=== PATIENT | female | born 1970 | race Caucasian/White ===

== ENCOUNTER 2019-02-25 16:30 | Emergency (ER) | payer OTHER ==
[~2019-02-25] VITALS: Ht 165.1 cm; Wt 86.2 kg
[2019-02-25 16:37] VITALS: BP_SYST 201
--- NOTE | 2019-02-25 16:45 | NUR ---
Patient to ER bed 5 to gown for evaluation. Side rails up. Report given to Anita THOMPSON.
--- NOTE | 2019-02-25 16:55 | NUR ---
Pt AAOx4 ambulated into ED c/o 08/24 mid chest pain and hypertension ~ 2 months with increasing symptoms for past week. Pt was on lopressor which she says did not help her condition. BP when placed in room was 196/124. Skin pink dry and warm, breathing even and unlabored. No other injuries/complaints per pt/noted. Will continue to monitor.
[2019-02-25] MEDS ORDERED: METOPROLOL TARTRATE 5 MG/5 ML VIAL IVP ONE (17:00)
[2019-02-25] MEDS ORDERED: ASPIRIN 81 MG TAB.CHEW PO ONE (17:00)
--- NOTE | 2019-02-25 17:03 | NUR ---
ER Dr. Giron at bedside examining patient.
[2019-02-25 17:09] LABS: BASOPHILS # (AUTO) 0.1 K/uL (0.0-0.2); BASOPHILS % (AUTO) 0.7 % (0.0-2.0); EOSINOPHILS # (AUTO) 0.1 K/uL (0.0-0.4); EOSINOPHILS % (AUTO) 1.3 % (0.0-4.0); HEMATOCRIT 42.5 % (36-48); HEMOGLOBIN 14.6 g/dL (12.0-16.0); LYMPHOCYTES # (AUTO) 1.6 K/uL (1.0-5.5); LYMPHOCYTES % (AUTO) 16.4 % (20.5-51.5); MEAN CORPUSCULAR HEMOGLOBIN 32 pg (27-31); MEAN CORPUSCULAR HGB CONC 34 % (32-36); MEAN CORPUSCULAR VOLUME 92 fL (79.0-98.0); MONOCYTES # (AUTO) 0.8 K/uL (0.0-1.0); MONOCYTES % (AUTO) 8.6 % (1.7-9.3); NEUTROPHILS # (AUTO) 7.2 K/uL (1.8-7.7); PLATELET COUNT (AUTO) 285 K/uL (130-430); RED BLOOD CELL COUNT(AUTO) 4.64 MIL/uL (4.2-6.2); WHITE BLOOD COUNT (AUTO) 9.9 K/uL (4.8-10.8)
[2019-02-25 17:20] LABS: CALCIUM 8.8 mg/dL (8.4-11.0); CREATININE 1.09 mg/dL (0.55-1.30); POTASSIUM 3.7 mmol/L (3.5-5.1)
[2019-02-25 17:26] LABS: ALBUMIN 3.5 g/dL (3.4-4.8); TOTAL BILIRUBIN 0.2 mg/dL (0.0-1.0)
[2019-02-25 18:04] VITALS: BP_SYST 191
--- NOTE | 2019-02-25 18:04 | NUR ---
Patient given written and verbal discharge instructions and verbalizes understanding. ER MD Giron discussed with patient the results and treatment provided. Patient in stable condition. ID arm band removed. IV catheter removed intact and dressing applied, no active bleeding. Rx of lisinopril 20mg given. Patient educated on pain management and to follow up with PMD. Pain Scale 0/10. Opportunity for questions provided and answered. Medication side effect fact sheet provided.
== END 2019-02-25 18:04 | disposition home or self-care (01) ==
LOC: SED 16:30
DX: I10 Essential (primary) hypertension (principal); J45.909 Unspecified asthma, uncomplicated
CPT/HCPCS: 36415; 80053; 84484; 85025; 93005; 96374; 99284; J3490

== ENCOUNTER 2019-04-15 18:17 | Emergency (ER) | payer MEDICAID, OTHER ==
[~2019-04-15] VITALS: Ht 167.6 cm; Wt 83.9 kg
[2019-04-15 18:20] VITALS: BP_SYST 126
--- NOTE | 2019-04-15 18:27 | NUR ---
Patient triaged and placed in waiting room. VSS and patient appears in no acute distress at this time. Accompanied by , awaiting available bed, and MD notified of need for MSE.
--- NOTE | 2019-04-15 18:34 | NUR ---
6Patient to ER bed 03 to gown for evaluation. Side rails up. Report given to DONNA Omer
--- NOTE | 2019-04-15 18:40 | NUR ---
Patient AAOx4 c/o chest pain radiating to the back that has been worsening for 2 weeks. Patient denies any SOB. Patient reports PMH of depression, ADHD, and hernia repair surgery. Respirations even and unlabored, skin warm/pink/dry. No signs or symptoms of acute distress noted.
--- NOTE | 2019-04-15 18:44 | NUR ---
ER Dr. Wolf at bedside examining patient.
[2019-04-15 19:07] LABS: BASOPHILS # (AUTO) 0.1 K/uL (0.0-0.2); BASOPHILS % (AUTO) 0.4 % (0.0-2.0); EOSINOPHILS # (AUTO) 0.1 K/uL (0.0-0.4); EOSINOPHILS % (AUTO) 1.1 % (0.0-4.0); HEMATOCRIT 44.2 % (36-48); LYMPHOCYTES # (AUTO) 2.4 K/uL (1.0-5.5); LYMPHOCYTES % (AUTO) 20.9 % (20.5-51.5); MEAN CORPUSCULAR HEMOGLOBIN 31 pg (27-31); MEAN CORPUSCULAR HGB CONC 34 % (32-36); MEAN CORPUSCULAR VOLUME 92 fL (79.0-98.0); MONOCYTES % (AUTO) 8.5 % (1.7-9.3); NEUTROPHILS % (AUTO) 69.1 % (40.0-70.0); PLATELET COUNT (AUTO) 293 K/uL (130-430); RED BLOOD CELL COUNT(AUTO) 4.81 MIL/uL (4.2-6.2); RED CELL DISTRIBUTION WIDTH 12.9 % (9.0-15.0); WHITE BLOOD COUNT (AUTO) 11.6 K/uL (4.8-10.8)
--- NOTE | 2019-04-15 19:11 | NUR ---
Endorsement Endorsed bedside report to oncoming RN using SBAR approach for continuation of care.
[2019-04-15 19:23] LABS: CREATININE 0.98 mg/dL (0.55-1.30); POTASSIUM 3.8 mmol/L (3.5-5.1)
[2019-04-15 19:29] LABS: ALBUMIN 3.8 g/dL (3.4-4.8); TOTAL BILIRUBIN 0.2 mg/dL (0.0-1.0)
--- NOTE | 2019-04-15 19:50 | NUR ---
ER Dr. Rice at bedside examining patient.
[2019-04-15 20:26] LABS: FREE T4 (FREE THYROXINE) 0.8 ng/dl (0.8-1.5); THYROID STIMULATING HORMONE 2.39 uIu/mL (0.36-3.74)
[2019-04-15 20:57] VITALS: BP_SYST 126
--- NOTE | 2019-04-15 20:57 | NUR ---
Patient given written and verbal discharge instructions and verbalizes understanding. ER MD discussed with patient the results and treatment provided. Patient in stable condition. ID arm band removed. IV catheter removed intact and dressing applied, no active bleeding. No Rx given. Patient educated on pain management and to follow up with PMD. Pain Scale 0. Opportunity for questions provided and answered. Medication side effect fact sheet provided.
== END 2019-04-15 20:57 | disposition home or self-care (01) ==
LOC: SED 18:17
DX: Z88.0 Allergy status to penicillin (principal); I10 Essential (primary) hypertension; J45.909 Unspecified asthma, uncomplicated; F32.9 Major depressive disorder, single episode, unspecified; F41.9 Anxiety disorder, unspecified; R07.89 Other chest pain
CPT/HCPCS: 36415; 71045; 80053; 82550-TC; 84439; 84443-TC; 84479; 84484; 85025; 93005; 99284

== ENCOUNTER 2022-05-19 14:51 | Inpatient (IN) | payer MEDICAID ==
[~2022-05-19] VITALS: Ht 165.1 cm; Wt 86.9 kg
[2022-05-19 14:51] VITALS: BP_SYST 117
[~2022-05-19 14:51] MED LIST: DEXAMETHASONE SOD PHOSPHATE 4 MG/ML VIAL ONE; HYDROmorphone 2 MG/ML VIAL ONE; KETOROLAC TROMETHAMINE 30 MG VIAL ONE; LR 1,000 ML IV.SOLN IV ONE; NS 1000 ML IV.SOLN IV ONE; NS IRRIG SOLN 1000 ML IR ONE; ONDANSETRON HCL 4 MG/2 ML VIAL ONE; PIGGYBACK IV ONE; POTASSIUM CHLORIDE IV ONE; PROPOFOL 200MG/ 20ML VIAL (DIPRIVAN) IV ONE; ROCURONIUM BROMIDE 10 MG/ML (ZEMURON) ONE; SEVOFLURANE 15 MIN GAS INH ONE; SUCCINYLCHOLINE CHLORIDE 20 MG/ML(QUELICIN) ONE; SUGAMMADEX SODIUM 200 MG/2 ML VIAL IV ONE; fentaNYL CITRATE 250 MCG/5 ML AMP ONE
--- NOTE | 2022-05-19 15:00 | NUR ---
Patient triaged and placed in waiting room. VSS and patient appears in no acute distress at this time. Accompanied by SELF, awaiting available bed, and MD notified of need for MSE.
[2022-05-19 15:34] LABS: BILIRUBIN,URINE NEGATIVE (NEGATIVE); BLOOD, URINE NEGATIVE (NEGATIVE); CLARITY/URINE SLIGHTLY HAZY (CLEAR); COLOR,URINE YELLOW (YELLOW); GLUCOSE,URINE NEGATIVE (NEGATIVE); KETONES,URINE NEGATIVE (NEGATIVE); LEUKOCYTE ESTERASE ,URINE TRACE (NEGATIVE); NITRITE, URINE NEGATIVE (NEGATIVE); PROTEIN URINE TRACE (NEGATIVE)
[2022-05-19 15:44] LABS: BASOPHILS # (AUTO) 0.1 K/uL (0.0-0.2); BASOPHILS % (AUTO) 0.5 % (0.0-2.0); EOSINOPHILS # (AUTO) 0.2 K/uL (0.0-0.4); EOSINOPHILS % (AUTO) 1.6 % (0.0-4.0); HEMATOCRIT 43.2 % (36-48); HEMOGLOBIN 14.8 g/dL (12.0-16.0); LYMPHOCYTES # (AUTO) 2.4 K/uL (1.0-5.5); LYMPHOCYTES % (AUTO) 18.4 % (20.5-51.5); MEAN CORPUSCULAR HEMOGLOBIN 31 pg (27-31); MEAN CORPUSCULAR HGB CONC 34 % (32-36); MEAN CORPUSCULAR VOLUME 90 fL (79.0-98.0); MONOCYTES # (AUTO) 1.3 K/uL (0.0-1.0); NEUTROPHILS # (AUTO) 9.1 K/uL (1.8-7.7); NEUTROPHILS % (AUTO) 69.5 % (40.0-70.0); PLATELET COUNT (AUTO) 247 K/uL (130-430); RED BLOOD CELL COUNT(AUTO) 4.81 MIL/uL (4.2-6.2); RED CELL DISTRIBUTION WIDTH 13.5 % (9.0-15.0); WHITE BLOOD COUNT (AUTO) 13.1 K/uL (4.8-10.8)
[2022-05-19 15:52] LABS: ANION GAP 12 (5-15); CALCIUM 8.7 mg/dL (8.4-11.0); CHLORIDE 100 mmol/L (98-107); CREATININE 1.09 mg/dL (0.55-1.30); GLUCOSE 108 mg/dL (70-99); UREA NITROGEN, BLOOD 22 mg/dL (8-21)
[2022-05-19 15:55] LABS: ACETONE, SERUM NEGATIVE (NEGATIVE); GFR AFRICAN AMERICAN 69 mL/min (>90)
[2022-05-19 15:56] LABS: ALANINE AMINOTRANSFERASE 19 U/L (12-78); ALBUMIN 3.5 g/dL (3.4-4.8); AMYLASE 57 U/L (0-100); ASPARTATE AMINOTRANSFERASE 19 U/L (10-37); C-REACTIVE PROTEIN QUANT 9.4 mg/dL (0-0.5); LIPASE 191 U/L (73-393); TOTAL BILIRUBIN 0.4 mg/dL (0.0-1.0)
[2022-05-19] MEDS ORDERED: metroNIDAZOLE 500 mg/NS 100 ML IV ONE (16:00)
[2022-05-19] MEDS ORDERED: ONDANSETRON HCL 4 MG/2 ML VIAL IVP ONE (16:00)
[2022-05-19] MEDS ORDERED: MORPHINE 4 MG INJ. 4 MG/ML VIAL IVP ONE (16:00)
[2022-05-19] MEDS ORDERED: NACL 0.9% 1,000 ML IV ONE (16:00)
--- NOTE | 2022-05-19 16:00 | NUR ---
PT REFUSED IV ACCESS PERIPHERAL LINE. URINE AND LABS OBTAINED.
--- NOTE | 2022-05-19 16:14 | NUR ---
NOTIFIED ED ADMITTING, [facility], REGARDING DR. BUCIO'S REQUEST FOR ADMISSION. PER DR. BUCIO, PT IS NOT STABLE FOR TRANSFER. WILL CONTACT [employer]PER[employer] REGARDING THIS MATTER. PER FACESHEET: [facility]
[2022-05-19 16:29] LABS: BACTERIA,URINE MODERATE /HPF (None Seen); RBC,URINE 0-3 /HPF (0-3)
[2022-05-19] MEDS ORDERED: MORPHINE 2 MG/ML INJ. SYRINGE IVP PRN ×3 (16:30→18:15)
[2022-05-19] MEDS ORDERED: NACL 0.9% 1,000 ML IV SCH (16:30)
--- NOTE | 2022-05-19 16:45 | NUR ---
# 18 gauge angiocath placed to RIJ VIA U/S PERFORMED BY DR. BUCIO. Use of asceptic technique. Opsite placed over site. Blood return noted. Flushed with 10 cc of normal saline. No evidence of infiltration noted. Patient tolerated well.
--- NOTE | 2022-05-19 17:06 | NUR ---
DR. MEYER AT BEDSIDE TO ASSESS PT. PT HAS EATEN RECENTLY, PT WILL HAVE SURGERY IN THE MORNING. PT AGREED WITH POC.
--- NOTE | 2022-05-19 17:08 | NUR ---
MORPHINE 4MG IVP GIVEN, ZOFRAN IVP GIVEN. SCHEDULED ABT GIVEN ORDERED.
--- NOTE | 2022-05-19 17:18 | NUR ---
GIVING UPDATE ON PT STATUS. CALL TRANSFERRED TO DONNA RUTHERFORD FOR FURTHER CLINICAL INFO SPOKE TO SUZANNE FARMER COMPLAINT INVESTIGATOR
--- NOTE | 2022-05-19 17:52 | NUR ---
Admit bed requested Patient will be admitted to care of . Admitted to MEDICAL SURGICAL unit. Diagnosis ACUTE APPENDICITIS Inpatient (Yes or No) YES Observation (Yes or No) NO Orientation concerns or request close to nursing station (Yes or No) NO Covid Status PENDING On vent or bipap NO Isolation requirements PENDING Needs a sitter NO From Home (Yes or if No enter name of facility) YES Requires Dialysis (Yes or No) NO Med Rec Completed (Yes of No) PENDING
[2022-05-19] MEDS: KCL 20 mEq in D5/0.45NS 1000mL 1,000 ML IV SCH (17:56)
--- NOTE | 2022-05-19 17:57 | NUR ---
COVID/MRSA OBTAINED AND TAKEN TO LAB. D5 I/2 NS KCL 20 MEQ IVF INITIATED AT 100ML/HOUR.
[2022-05-19] MEDS ORDERED: LORazepam 2 MG/ML VIAL IVP PRN (18:15)
[2022-05-19] MEDS ORDERED: NALOXONE HCL 0.4 MG/ML AMP (NARCAN) IVP PRN ×3 (18:15→18:22)
[2022-05-19] MEDS ORDERED: POTASSIUM CHLORIDE 20 MEQ TAB.PRT.SR PO PRN (18:15)
[2022-05-19] MEDS ORDERED: MUPIROCIN 2% TOPICAL OINTMENT 22 GM NS PRN (18:15)
[2022-05-19] MEDS ORDERED: ZOLPIDEM TARTRATE 5 MG TABLET PO PRN (18:15)
[2022-05-19] MEDS ORDERED: DOCUSATE SODIUM 100 MG CAPSULE PO PRN (18:15)
[2022-05-19] MEDS ORDERED: MAGNESIUM SULFATE 50 ML IV PRN (18:15)
[2022-05-19] MEDS ORDERED: ONDANSETRON HCL 4 MG/2 ML VIAL IVP PRN (18:15)
[2022-05-19] MEDS ORDERED: ACETAMINOPHEN 325 MG TABLET PO PRN ×2 (18:15→18:30)
--- NOTE | 2022-05-19 19:11 | NUR ---
ENDORSED PT TO DONNA SMITH. ALL QUESTIONS AND CONCERNS ADDRESSED.
[2022-05-19] MEDS ORDERED: CLON0.1T PO ×2 (20:02)
[2022-05-19] MEDS ORDERED: PARO-41 PO (20:02)
[2022-05-19] MEDS ORDERED: HYG25 PO (20:02)
[2022-05-19] MEDS ORDERED: OMEP-268 PO (20:02)
[2022-05-19] MEDS ORDERED: ALBMDI INH (20:02)
--- NOTE | 2022-05-19 20:04 | NUR ---
Pt assessed, GCS 15. No complaints of pain at this time. Med Reconciliation completed & updated.
--- NOTE | 2022-05-19 20:43 | NUR ---
Patient will be admitted to care of Dr. Reggie DO. Admitted to MedSurg unit. Will go to room 116B. Belongings list completed. Complete and up to date summary report printed. SBAR report given to Josef Anand RN at bedside with opportunity for questions.
[2022-05-19 21:06] VITALS: BP_SYST 133
--- NOTE | 2022-05-19 21:20 | NUR ---
Pt admitted to med surg. pt is aox4 able to make needs known. rr even and unlabored on ra. pt able to answer all questions during admission. pt ambulatory. pt educated to use call light if she needs assistance. bed rails upx2. will give Devora rn report on pt
[2022-05-19] MEDS: metroNIDAZOLE 500 mg/NS 100 ML IV SCH (23:18)
[2022-05-20] VITALS (8 sets, daily range): BP systolic 129–150
[2022-05-20] MEDS: KCL 20 mEq in D5/0.45NS 1000mL 1,000 ML IV SCH ×2 (04:12→16:08)
[2022-05-20 06:48] LABS: BASOPHILS % (AUTO) 0.4 % (0.0-2.0); EOSINOPHILS # (AUTO) 0.1 K/uL (0.0-0.4); EOSINOPHILS % (AUTO) 1.2 % (0.0-4.0); HEMOGLOBIN 14.6 g/dL (12.0-16.0); LYMPHOCYTES # (AUTO) 1.2 K/uL (1.0-5.5); LYMPHOCYTES % (AUTO) 14.6 % (20.5-51.5); MEAN CORPUSCULAR HEMOGLOBIN 30 pg (27-31); MEAN CORPUSCULAR HGB CONC 35 % (32-36); MEAN CORPUSCULAR VOLUME 88 fL (79.0-98.0); MONOCYTES # (AUTO) 0.8 K/uL (0.0-1.0); MONOCYTES % (AUTO) 10.4 % (1.7-9.3); NEUTROPHILS # (AUTO) 5.8 K/uL (1.8-7.7); NEUTROPHILS % (AUTO) 73.4 % (40.0-70.0); PLATELET COUNT (AUTO) 201 K/uL (130-430); RED CELL DISTRIBUTION WIDTH 13.3 % (9.0-15.0); WHITE BLOOD COUNT (AUTO) 7.9 K/uL (4.8-10.8)
[2022-05-20] MEDS: metroNIDAZOLE 500 mg/NS 100 ML IV SCH (06:51)
[2022-05-20 07:04] LABS: CALCIUM 8.7 mg/dL (8.4-11.0); CREATININE 0.83 mg/dL (0.55-1.30)
--- NOTE | 2022-05-20 07:20 | NUR ---
Received report from AM nurse about patient going to OR for LAP APPY. OR came and took patient to OR. Patient's alert and oriented and in no acute distress.
[2022-05-20 08:08] LABS: PROTHROMBIN TIME 10.5 SECS (9.5-12.5)
[2022-05-20] MEDS ORDERED: SUCCINYLCHOLINE CHLORIDE 20 MG/ML(QUELICIN) ONE (08:15)
[2022-05-20] MEDS ORDERED: LR 1,000 ML IV.SOLN IV ONE (08:15)
[2022-05-20] MEDS ORDERED: KETOROLAC TROMETHAMINE 30 MG VIAL ONE (08:15)
[2022-05-20] MEDS ORDERED: ONDANSETRON HCL 4 MG/2 ML VIAL ONE (08:15)
[2022-05-20] MEDS ORDERED: DEXAMETHASONE SOD PHOSPHATE 4 MG/ML VIAL ONE (08:15)
[2022-05-20] MEDS ORDERED: NS IRRIG SOLN 1000 ML IR ONE (08:15)
[2022-05-20] MEDS ORDERED: ROCURONIUM BROMIDE 10 MG/ML (ZEMURON) ONE (08:15)
[2022-05-20] MEDS ORDERED: PROPOFOL 200MG/ 20ML VIAL (DIPRIVAN) IV ONE (08:15)
[2022-05-20] MEDS ORDERED: fentaNYL CITRATE/PF 100 MCG/2 ML AMP ONE (08:15)
[2022-05-20] MEDS ORDERED: NS 1000 ML IV.SOLN IV ONE (08:15)
[2022-05-20] MEDS ORDERED: SUGAMMADEX SODIUM 200 MG/2 ML VIAL IV ONE (08:15)
[2022-05-20] MEDS ORDERED: HYDROmorphone 2 MG/ML VIAL ONE (08:15)
[2022-05-20] MEDS ORDERED: SEVOFLURANE 15 MIN GAS INH ONE (08:15)
[2022-05-20] MEDS ORDERED: HYDR-3917 PO (08:33)
[2022-05-20] MEDS ORDERED: BUPIVACAINE LIPOSOME/PF 266 MG/20 ML VIAL INFIL ONE (09:20)
[2022-05-20] MEDS ORDERED: NALOXONE HCL 0.4 MG/ML AMP (NARCAN) IVP PRN ×2 (09:45)
[2022-05-20] MEDS ORDERED: ONDANSETRON HCL 4 MG/2 ML VIAL IVP PRN (09:45)
[2022-05-20] MEDS ORDERED: HYDROmorphone 2 MG/ML VIAL IVP PRN (09:45)
[2022-05-20] MEDS ORDERED: HYDROmorphone 1 MG/ML INJ. CARTRIDGE IVP PRN (09:45)
[2022-05-20] MEDS ORDERED: KCL 20 mEq in 100 mL (PREMIX) 100 ML IV ONE ×3 (09:45)
[2022-05-20] MEDS: HYDROmorphone 1 MG/ML INJ. CARTRIDGE IVP PRN ×2 (10:40→10:50)
[2022-05-20] MEDS ORDERED: HYDROmorphone 1 MG/ML INJ. CARTRIDGE ONE (10:53)
--- NOTE | 2022-05-20 11:40 | NUR ---
Patient came back from OR, alert and oriented x4, IV site on RIJ, with no s/s of infection, patent, running LR. Patient has no c/o pain or discomfort at the incision sites. c/o pain on the R neck where IV site, as per patient it started hurting and burning when manager r d hung the IV Potassium. industrial therapist removed Potassium IV without finishing the whole bag. Offered to start a new IV site but patient refused. IV site on RIJ has no redness, swelling, or drainage and no pain when there's no movement as per patient. Made patient comfortable. VS obtained as per protocol. Placed call light within patient's reach.
--- NOTE | 2022-05-20 12:00 | NUR ---
Three lap sites on abdomen w/ Dermabond, dry and intact. No s/s of infection noted. Patient denies pain on the lap sites.
--- NOTE | 2022-05-20 14:30 | NUR ---
IV machine kept on beeping, checked RIJ IV access and tried to flush it but there's a resistance. Fluid was not going through. Instructed patient that we have to try to place another IV access because there were two IV antibiotics that need to be given plus there's continuous IVF. Patient stated, "I'm a hard stick, my vein rolls and it's not straight and I don't want to be a pin cushion." Reassured patient that we would try our best to get an IV access but patient said, "OK later". Patient's a/o x4 with no c/o pain or discomfort and in no acute distress.
[2022-05-20] MEDS ORDERED: metroNIDAZOLE 500 MG TABLET PO SCH (22:00)
--- NOTE | 2022-05-20 22:58 | NUR ---
Paged Dr. Paredes
[2022-05-21 08:48] VITALS: BP_SYST 129
[2022-05-21 11:16] VITALS: BP_SYST 131
[2022-05-21 15:39] VITALS: BP_SYST 135
--- NOTE | 2022-05-21 19:00 | NUR ---
Pt aox4, denied sob,cp,or any pain.No iv access, 3 abd incisions with demobond, dry,intact w/o active bleeding. pt stated her will be coming at 10pmto pick her up. Pt voiding w/o difficulty,last BM today, soft abd,not distended. vss, d/c instructions given about pain mgt with d/c pain med,s/sinf Addendum: 05/22/22 at 0134 by [facility], DONNA RN s/s infection, post op care. Pt verbalized understanding. Pt stated she would like another pain med instead of [place] because she got addicted to [place] in the past.Notified Dr. Slater who stated she will change pt pain med to Ibuprofen. All paperwork signed and provided to pt with instruction that she can go to ER if she experiences s/s of infection, sob, uncontrolled incisional pain etc. Pt wheeled out of unit by TORRES at 2200. Pt also received her due antibiotics before leaving
[2022-05-21 20:05] VITALS: BP_SYST 139
[2022-05-21] MEDS ORDERED: IBUP-1970 PO (20:33)
[2022-05-21] MEDS: levoFLOXacin 500 MG TABLET PO SCH ×2 (21:04→21:08)
== END 2022-05-21 22:00 | disposition home or self-care (01) | DRG 234 ==
LOC: SED 14:51 → SMU 16:21
PROVIDERS: ADMIT General Practice; ATTEND General Practice
PROC: 02HV33Z Insertion of Infusion Device into Superior Vena Cava, Percutaneous Approach (ICD-10-PCS; 2022-05-19)
PROC: B548ZZA Ultrasonography of Superior Vena Cava, Guidance (ICD-10-PCS; 2022-05-19)
PROC: 0DTJ4ZZ Resection of Appendix, Percutaneous Endoscopic Approach (ICD-10-PCS; principal; 2022-05-20 08:15)
DX: K35.80 Unspecified acute appendicitis (principal); R65.10 Systemic inflammatory response syndrome (SIRS) of non-infectious origin without acute organ dysfunction; E66.9 Obesity, unspecified; I10 Essential (primary) hypertension; J45.909 Unspecified asthma, uncomplicated; K21.9 Gastro-esophageal reflux disease without esophagitis; Z20.822 Contact with and (suspected) exposure to COVID-19; F32.A Depression, unspecified; Z88.0 Allergy status to penicillin; Z79.899 Other long term (current) drug therapy; Z68.31 Body mass index [BMI] 31.0-31.9, adult
CPT/HCPCS: 36415; 71045; 76376; 80048; 80053; 81000; 82009; 82150; 83037; 83605; 83690; 83735; 84702; 85025; 85610-TC; 85730-TC; 86140; 86886; 86900; 86901; 87081; 87086; 88304; 93005; 96365; 99285; C1727; C9290; J0330; J1100; J1170; J1885; J1956; J2270; J2405; J2704; J3010; J3480; J3490; J7030; J7120

== ENCOUNTER 2022-06-08 11:08 | Emergency (ER) | payer MEDICAID ==
[~2022-06-08] VITALS: Ht 165.1 cm; Wt 86.2 kg
[~2022-06-08 11:08] MED LIST changes: +ALBMDI INH; +CLON0.1T PO; -DEXAMETHASONE SOD PHOSPHATE 4 MG/ML VIAL ONE; +HYDR-3917 PO; -HYDROmorphone 2 MG/ML VIAL ONE; +HYG25 PO; +IBUP-1970 PO; -KETOROLAC TROMETHAMINE 30 MG VIAL ONE; -LR 1,000 ML IV.SOLN IV ONE; -NS 1000 ML IV.SOLN IV ONE; -NS IRRIG SOLN 1000 ML IR ONE; +OMEP-268 PO; -ONDANSETRON HCL 4 MG/2 ML VIAL ONE; +PARO-41 PO; -PIGGYBACK IV ONE; -POTASSIUM CHLORIDE IV ONE; -PROPOFOL 200MG/ 20ML VIAL (DIPRIVAN) IV ONE; -ROCURONIUM BROMIDE 10 MG/ML (ZEMURON) ONE; -SEVOFLURANE 15 MIN GAS INH ONE; -SUCCINYLCHOLINE CHLORIDE 20 MG/ML(QUELICIN) ONE; -SUGAMMADEX SODIUM 200 MG/2 ML VIAL IV ONE; -fentaNYL CITRATE 250 MCG/5 ML AMP ONE
[2022-06-08 11:10] VITALS: BP_SYST 154
--- NOTE | 2022-06-08 11:14 | NUR ---
Patient triaged and placed in waiting room. VSS and patient appears in no acute distress at this time. Accompanied by SELF, awaiting available bed, and MD notified of need for MSE.
--- NOTE | 2022-06-08 11:25 | NUR ---
PT STATES 5 DAYS WITH PAIN ABOVE UMBILICUS, RECENTLY HAD AN APPENDECTOMY.
[2022-06-08 13:23] LABS: BASOPHILS # (AUTO) 0.1 K/uL (0.0-0.2); BASOPHILS % (AUTO) 0.7 % (0.0-2.0); EOSINOPHILS # (AUTO) 0.2 K/uL (0.0-0.4); EOSINOPHILS % (AUTO) 2.3 % (0.0-4.0); HEMATOCRIT 45.7 % (36-48); HEMOGLOBIN 15.4 g/dL (12.0-16.0); LYMPHOCYTES % (AUTO) 24.1 % (20.5-51.5); MEAN CORPUSCULAR HEMOGLOBIN 30 pg (27-31); MEAN CORPUSCULAR HGB CONC 34 % (32-36); MEAN CORPUSCULAR VOLUME 90 fL (79.0-98.0); MONOCYTES # (AUTO) 0.7 K/uL (0.0-1.0); MONOCYTES % (AUTO) 8.7 % (1.7-9.3); NEUTROPHILS # (AUTO) 5.3 K/uL (1.8-7.7); NEUTROPHILS % (AUTO) 64.2 % (40.0-70.0); PLATELET COUNT (AUTO) 334 K/uL (130-430); RED BLOOD CELL COUNT(AUTO) 5.09 MIL/uL (4.2-6.2); RED CELL DISTRIBUTION WIDTH 13.5 % (9.0-15.0); WHITE BLOOD COUNT (AUTO) 8.3 K/uL (4.8-10.8)
[2022-06-08 13:31] LABS: CALCIUM 9.6 mg/dL (8.4-11.0); CREATININE 1.05 mg/dL (0.55-1.30)
[2022-06-08 13:35] LABS: TOTAL BILIRUBIN 0.3 mg/dL (0.0-1.0)
--- NOTE | 2022-06-08 14:11 | NUR ---
DR BUCIO OUT TO TRIAGE ROOM FOR EVALUATION
[2022-06-08 16:24] VITALS: BP_SYST 154
--- NOTE | 2022-06-08 16:26 | NUR ---
Patient given written and verbal discharge instructions and verbalizes understanding. ER MD discussed with patient the results and treatment provided. Patient in stable condition. ID arm band removed. No Rx given. Patient educated on pain management and to follow up with PMD. Pain Scale 0/10 . Opportunity for questions provided and answered. Medication side effect fact sheet provided.
== END 2022-06-08 16:26 | disposition home or self-care (01) ==
LOC: SED 11:08
DX: K35.32 Acute appendicitis with perforation, localized peritonitis, and gangrene, without abscess (principal); R10.9 Unspecified abdominal pain; J45.909 Unspecified asthma, uncomplicated; I10 Essential (primary) hypertension; Z88.0 Allergy status to penicillin; Z79.899 Other long term (current) drug therapy
CPT/HCPCS: 36415; 76376; 80053; 83605; 83690; 85025; 87040; 99284